=== PATIENT | male | born 1950 | race Caucasian/White ===

== ENCOUNTER → 2017-03-07 | Outpatient (CLI) | payer OTHER ==
[~2017-03-07] VITALS: Ht 182.9 cm; Wt 95.3 kg
[~2017-03-07] MED LIST: CAL/MAG/ZINC PO; CO Q-10100 MG PO; COZAAR 25 MG TA25 M1 PO; EXCEDRIN CAPLE1 EACH PO; PRILOSEC 20 MG20 MG PO; VITAMIN C500 M1 PO; VITAMIN D-32000 UNIT PO
--- NOTE | ~2017-03-07 | P ---
[facility] [place] [address] PROCEDURE REPORT Name: EMIL OLIVARES Room #: REG [facility]#: [id number] Admission: 03/07/17 Attend Phys: Alvin Nguyen Discharge: Date of : 52 Report #: [id number] THIS REPORT FOR: //name// CC: Alvin Platt MD DATE OF SERVICE: 03/07/2017 PROCEDURE PERFORMED: Colonoscopy. HISTORY OF PRESENT ILLNESS: The patient is a 66-year-old male who began having abdominal pain and diarrhea over the weekend. This was followed with bright red blood per rectum. He has a history of possible hemorrhoids. Last colonoscopy reportedly was 2 years ago. He denies any nausea or vomiting, no fevers or chills. He was evaluated in the emergency room, was given Bentyl, which has been helpful for abdominal pain and spasms, the diarrhea has improved as well. Plan is for colonoscopy. PROCEDURE: The risks and benefits of the procedure were explained to the patient, those risks including, but not limited to bleeding, perforation, and the risk of sedation. He understood these risks and gave informed consent. Sedation was given using propofol per anesthesia. Next, a digital rectal exam was initially performed, which was normal. Next, using a standard Fujinon colonoscope, the scope was placed in the patient's anus and advanced under direct vision to the cecum. The overall prep was good. The cecum and ileocecal valve were normal in appearance. The ascending, transverse and descending colon were normal. Multiple diverticula were noted throughout the sigmoid colon, no evidence of inflammation, otherwise normal. The rectal mucosa was normal. On retroflexion, 4 moderate sized internal hemorrhoids that were somewhat pedunculated were noted, none of which were bleeding. Close examination of the anal canal showed no evidence of external hemorrhoids or anal fissure. At this point, the scope was then withdrawn and the procedure terminated. The patient tolerated the procedure well. IMPRESSION: 1. Sigmoid diverticulosis. 2. Four pedunculated internal hemorrhoids, likely source of recent bright red blood per rectum. No evidence of active bleeding at this time. 3. Otherwise, normal colonoscopy. RECOMMENDATIONS: 1. High fiber diet. 2. Repeat colonoscopy in 10 years. 3. Consider a colorectal surgical consultation for possible internal hemorrhoidal banding versus conservative therapy with Analpram. [address] [address] PROCEDURE REPORT Name: EMIL OLIVARES Room #: REG [facility] Lockhart#: [id number] Admission: 03/07/17 Attend Phys: Alvin Nguyen Discharge: Date of : 52 Report #: [id number] Thank you for allowing me to participate in his care. <ELECTRONICALLY SIGNED> By: Alvin Bowles MD 03/10/17 0808 [id number] Alvin Bowles MD /nt
== END | disposition home or self-care (01) ==
LOC: GI 08:11
DX: K57.30 Diverticulosis of large intestine without perforation or abscess without bleeding (principal); K64.8 Other hemorrhoids; I10 Essential (primary) hypertension; I48.91 Unspecified atrial fibrillation; K21.9 Gastro-esophageal reflux disease without esophagitis; Z87.891 Personal history of nicotine dependence; Z95.0 Presence of cardiac pacemaker; Z98.890 Other specified postprocedural states; Z79.899 Other long term (current) drug therapy; Z87.19 Personal history of other diseases of the digestive system
CPT/HCPCS: 62110; 62900

== ENCOUNTER → 2019-07-16 | Outpatient (CLI) | payer OTHER ==
[~2019-07-16] VITALS: Ht 182.9 cm; Wt 97.5 kg
[~2019-07-16] MED LIST changes: +XARELTO20 MG PO
--- NOTE | 2019-07-16 17:28 | P ---
[facility] [place] [address] PROCEDURE REPORT Name: EMIL [facility]IVARES [id number] Admission: 07/16/19 Attend Phys: Alvin Nguyen Discharge: Date of : 52 Report #: [id number] THIS REPORT FOR: cc: Shana Platt MD, Kerry B. MD McElhinney, Christian C. MD ~ CC: Alvin Platt MD DATE OF SERVICE: 07/16/2019 PROCEDURE PERFORMED: Upper endoscopy with biopsies and esophageal dilation. HISTORY OF PRESENT ILLNESS: The patient is a 69-year-old male who underwent an upper endoscopy by myself on 11/18/2015 for dysphagia and reflux at that time. At that time, he was noted to have grade A erosive esophagitis. No strictures were noted. Dilation with a 48-Liberian was performed. He now reports recurrent dysphagia, beginning in February of this year. He is taking omeprazole 20 mg on a daily basis. Denies any significant heartburn. DESCRIPTION OF PROCEDURE: The risks and benefits of the procedure were explained to the patient, those risks including but not limited to bleeding, perforation and the risk of sedation. He understood these risks and gave informed consent. Sedation was given using propofol per Anesthesia. Next, using a standard Olympus upper endoscope, the scope was placed in the patient's mouth and advanced under direct vision through the esophagus, stomach and into the second portion of the duodenum. The larynx was normal in appearance. The upper and mid esophagus was normal. 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 Biopsies were obtained. No stricture was seen. Upon entering the stomach, a small hiatal hernia was noted. Overall, the gastric mucosa was normal. The pylorus was normal and patent. The duodenal bulb, first and second portion were all normal. The scope was then brought back up into the patient's stomach and a Savary guidewire was inserted through the scope, leaving the guidewire in place as the scope was then withdrawn. Next, a 51-Liberian Savary dilation was then performed without difficulty. The wire and dilator were removed. The scope was reintroduced into the patient's stomach. There was no evidence of mucosal tear after dilation. The scope was then withdrawn and the procedure terminated. The patient tolerated the procedure well. IMPRESSION: 1. 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 2. Small hiatal hernia. 3. Otherwise normal upper endoscopy. [address] [address] PROCEDURE REPORT Name: EMIL OLIVARES Room #: REG [facility]#: [id number] Admission: 07/16/19 Attend Phys: Alvin Nguyen Discharge: Date of : 52 Report #: [id number] RECOMMENDATIONS: 1. Await biopsy results. 2. Observe the patient post-dilation. 3. Continue daily PPI therapy. Thank you for allowing me to participate in his care. <ELECTRONICALLY SIGNED> By: Alvin Bowles MD 07/16/19 1728 0938 1004 Alvin Bowles MD /nt
--- NOTE | 2019-07-18 16:08 | PATH ---
[facility] [address] [place] [address] PATHOLOGY RPT PROCEDURE Name: EMIL OLIVARES Onesimo Room #: REG [facility]IR Murillo.#: [id number] Admission: 07/16/19 Date of : 52 Discharge: Report #: [id number] Path Case #: [id number] [facility] Accession Number: [id number] . 01 Material submitted: . esophagus - BIOPSY OF DISTAL ESOPHAGUS TO R/O COOLEY'S. Modifiers: distal . 01 Clinical history: . Dysphagia, GERD rule out Cooley's . 02 Diagnosis: Gastroesophageal mucosa, distal esophagus to rule out Cooley's, endoscopic biopsy: - Cardia-type mucosa with moderate chronic inflammation. - Squamous mucosa with mild esophagitis. - Negative for intestinal metaplasia or dysplasia. . (IUV:mml; 07/18/2019) QLM 07/18/2019 1213 Local . 02 Electronically signed: . Piedad Noland MD, Pathologist NPI- [id number] . 01 Gross description: . The specimen is received in formalin, labeled "Eiml Olivares BX of distal esophagus" and consists of a fragment of pink-robles tissue measuring 0.3 x 0.3 cm which is entirely submitted in A1. (SDY; 07/17/2019) SYU/SYU 07/17/2019 1143 Local . 02 Pathologist provided ICD-10: K29.50, K20.9 . 02 CPT . 046279 Specimen Comment: A courtesy copy of this report has been sent to [phone], [phone] Specimen Comment: [phone] Specimen Comment: Report sent to / DR WILKINS Performed at: [address] [id number] MD Gallito Dsouza MD Phone: [phone] Performed at: [address] [id number] [address] [address] PATHOLOGY RPT PROCEDURE Name: EMIL OLIVARES Room #: REG [facility]#: [id number] Admission: 07/16/19 Date of : 52 Discharge: Report #: [id number] Path Case #: [id number] MD Piedad Noland MD Phone: [phone]
== END | disposition home or self-care (01) ==
LOC: GI 07:25 → EDSTATUS 15:19 → GI 15:59
DX: R13.19 Other dysphagia (principal); K29.50 Unspecified chronic gastritis without bleeding; K20.9 Esophagitis, unspecified; K21.9 Gastro-esophageal reflux disease without esophagitis; K44.9 Diaphragmatic hernia without obstruction or gangrene; I10 Essential (primary) hypertension; I48.91 Unspecified atrial fibrillation; Z95.0 Presence of cardiac pacemaker; Z98.890 Other specified postprocedural states; Z79.899 Other long term (current) drug therapy; Z79.01 Long term (current) use of anticoagulants
CPT/HCPCS: 62110; 62900